=== PATIENT | female | born 1990 | race Caucasian/White ===

== ENCOUNTER 2024-01-04 13:25 | Day surgery (SDC) | payer BC, SELFPAY ==
[2024-01-04] VITALS (10 sets, daily range): BP systolic 132–170; BP diastolic 64–98
--- NOTE | 2024-01-04 09:37 | ED.GENMED ---
History of Present Illness
General
Chief Complaint: Abdominal Pain
Source: patient
Time Seen by Provider: 01/04/24 09:28
Travel History
Have you had any contact with someone who has COVID-19?: No
Do you have any symptoms of coronavirus? Fever > 100 degrees, chills, cough, shortness of breath, sore throat, loss of taste or smell, muscle aches, or headache?: No
History of Present Illness
History of Present Illness:
33-year-old female with no significant past medical history presenting to the emergency department for evaluation after being awoken at 12:30 AM with sudden onset right upper quadrant abdominal pain described to be sharp, radiating towards the
scapula, constant and unrelieved with Tylenol, associated with persistent nausea and 1 episode of nonbloody nonbilious emesis. Patient states that she had a similar episode a couple of months ago the pain then was not as severe and resolved on its
own after around an hour or so. Patient states she had hotdogs, baked beans and corn for dinner last night. No known sick contacts or recent antibiotics. No other concerns at this time.
Past History
Past History
ED Past Medical History: None
ED Past Surgical History:
Social History
Tobacco: Non-smoker
Alcohol: Occasional
Drug: None
Personal:
Living: with family
Review of Systems
Review of Systems
All Other Systems: ROS reviewed and negative except as documented in HPI and ROS
Phy Exam
Physical Exam
Physical Exam:
GENERAL: Alert , appears very uncomfortable
EYE: clear conjunctiva b/l
HEAD: NCAT
ENT: o/p clr, mmm.
CARDIAC: Regular rate and rhythm .
LUNGS: Clear breath sounds bilaterally, no acute respiratory distress, no wheezes/rales/rhonchi
ABDOMEN: Soft, moderate to severe right upper quadrant tenderness, no r/g, no cvat, positive Salazar sign, no tenderness at McBurney's point
NEUROLOGICAL: Alert and oriented
SKIN: Warm and dry, skin intact.
MUSCULOSKELETAL: well perfused.
PSYCH: Normal and appropriate interaction.
Scores
Heart Failure Risk
Heart Failure Risk Score: Not Applicable
Heart Score for Chest Pain Patients
STEMI patient?: Not applicable
Withdrawal Assessment of Alcohol
Withdrawal Assessment Completed?: Not applicable
Course
Orders/Labs/Results
Orders:
Orders
01/04/24 09:30
Urinalysis Reflex To Culture Urgent
Date Specimen was Collected: 01/04/24
Time Specimen was Collected: 09:31
Test Result ONCE
01/04/24 09:36
Ketorolac [Toradol] 30 mg IV NOW STA
Ondansetron Injectable [Zofran] 4 mg IV NOW STA
US Abdomen Complete/Upper Urgent
Comment:
Reason For Exam: RUQ pain, vomiting
01/04/24 10:48
Complete Blood Count/With Diff Urgent
Comprehensive Metabolic Panel Urgent
HCG, Serum Qualitative Screen Urgent
Lipase Urgent
01/04/24 11:02
HYDROmorphone [Dilaudid] 0.5 mg IV NOW STA
Abnormal Lab Results
01/04/24
10:48
MCHC 32.7 L g/dL
(33.0-37.0)
MPV 10.7 H fL
(7.4-10.4)
Absolute Neuts (auto) 7.5 H 10^3/uL
(1.4-6.5)
Absolute Lymphs (auto) 1.1 L 10^3/uL
(1.2-3.4)
Neutrophils % 82.7 H %
(42.2-75.2)
Lymphocytes % 12.3 L %
(20.5-51.1)
Creatinine 0.5 L mg/dL
(0.6-1.0)
Glucose 108 H mg/dl
(70-99)
Calcium 10.6 H mg/dl
(8.4-10.2)
01/04/24 10:48
01/04/24 10:48
Vital Signs
Initial and Last Documented VS:
Initial Vital Signs
Temp Pulse Resp BP Pulse Ox
98.2 F 93 20 170/98 100
01/04/24 09:21 01/04/24 09:21 01/04/24 09:21 01/04/24 09:21 01/04/24 09:21
Last Documented Vital Signs
Temp Pulse Resp BP Pulse Ox
98.2 F 93 20 170/98 100
01/04/24 09:21 01/04/24 09:21 01/04/24 09:21 01/04/24 09:21 01/04/24 09:21
MDM/Problems Addressed
Differential Diagnosis Includes:
Cholecystitis, choledocholithiasis, ascending cholangitis, pancreatitis, GERD/gastritis
MDM/Problems Addressed:
33-year-old female present emergency department for evaluation of sudden onset right upper quadrant abdominal pain beginning early this morning accompanied with persistent nausea and 1 episode of vomiting. Patient still with significant pain
despite the Tylenol. She has considerable right upper quadrant abdominal pain on exam. High degree of suspicion for cholecystitis. Labs and ultrasound ordered. Toradol and Zofran for symptomatic relief. Reassessment following.
*Radiology
Radiology exam reviewed: radiology read reviewed
*Pulse Oximetry
Patient hypoxic: no
*Medical Grade Shoemaker Interpretation
Rate: normal
Rhythm: sinus
*Critical Care Note
Total Time (30-74mins, 75-104mins- exclusive of procedures): Not Applicable
Comment
Comment:
11:05 AM: Patient on reevaluation noting minimal improvement with Toradol. Half milligram of Dilaudid was ordered. I reviewed patient's ultrasound and it does appear to be stones and sludge. Labs unremarkable. Awaiting official radiology report
and will discuss case with surgery.
11:40 AM: Patient noting much improved symptoms with Dilaudid. Still awaiting official ultrasound read.
Patient Management
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
Escalation/DeEscalation of care consider admission/obs:
Patient seen in consultation with general surgery. Decision was ultimately made to take patient to the OR for cholecystectomy. Patient remains with pain under control at present time.
ED Attending Note
-
Portions of this chart may have been created with voice recognition software.� Occasional wrong word or��sound alike� substitutions may have occurred due to the inherent limitations of voice recognition software.
Discharge Plan
Departure
Patient Disposition: OR
Date of Disposition: 01/04/24
Time of Disposition: 12:45
Presentation/result/management discussed w/ accepting MD/DO: Laurel
Discharge Problem:
Acute cholecystitis
Referrals:
Chay Red MD [Family Provider] -
Interventions
Interventions:
*Risk Screen - Suicide Last Done: 01/04/24 09:21
*General Assessment Last Done: 01/04/24 09:21
*Neglect/Abuse Screening Last Done: 01/04/24 10:18
*ED COVID-19 Vaccine History Last Done: 01/04/24 10:18
OU-Lcwwju-Mhdqxfxzfw Assessment Last Done: 01/04/24 10:18
Discharge Date and Time
Print Language: PORTUGUESE
[2024-01-04] MEDS: TORADOL 30 MG IV (10:49)
[2024-01-04] MEDS: ZOFRAN 4 MG IV (10:50)
[2024-01-04 10:56] LABS: % Basophils 0.4 % (0-2); % Immature Granulocytes 0.2 % (0-0.5); % Lymphocytes 12.3 % (20.5-51.1); % Monocytes 4.4 % (1.7-9.3); % Neutrophils 82.7 % (42.2-75.2); Absolute Lymphocytes 1.1 10^3/uL (1.2-3.4); Absolute Monocytes 0.4 10^3/uL (0.1-0.6); Absolute Neutrophils 7.5 10^3/uL (1.4-6.5); Hematocrit 41.3 % (37.0-47.0); Hemoglobin 13.5 g/dL (12.0-16.0); Mean Corp Hgb Conc. 32.7 g/dL (33.0-37.0); Mean Corpuscular Hgb 28.6 pg (27.0-31.0); Mean Corpuscular Volume 87.5 fL (81.0-99.0); Mean Platelet Volume 10.7 fL (7.4-10.4); Nucleated Red Blood Cells % 0 %; Platelet Count 263 10^3/uL (130-400); Red Blood Cell Count 4.72 10^6/uL (4.20-5.40); Red Cell Dist. Width 12.8 % (11.5-14.5); White Blood Cell Count 9.1 10^3/uL (4.8-10.8)
[2024-01-04] MEDS: DILAUDID 0.5 MG IV (11:06)
[2024-01-04 11:09] LABS: HCG, Serum Qualitative Screen Negative
[2024-01-04 11:15] LABS: ALT (SGPT) 28 U/L (0-35); Albumin 4.4 g/dl (3.5-5.0); Alkaline Phosphatase 74 U/L (38-126); Blood Urea Nitrogen 11 mg/dl (7-17); Calcium 10.6 mg/dl (8.4-10.2); Carbon Dioxide 22 mmol/L (22-30); Chloride 106 mmol/L (98-107); Glucose 108 mg/dl (70-99); Lipase 66 U/L (23-300); Potassium 4.3 mmol/L (3.5-5.1); Sodium 137 mmol/L (135-145); Total Bilirubin 0.5 mg/dl (0.2-1.3); Total Protein 7.5 g/dl (6.3-8.2); eGFR > 60.00
[2024-01-04 11:39] LABS: AST (SGOT) 27 U/L (14-36)
--- NOTE | 2024-01-04 12:54 | CON.GS ---
Medical History
-
Chief Complaint: RUQ abdominal pain
History of Present Illness:
Patient is a 33 yo F with a PMH of obesity, MIKE, and s/p who presents to the ER with 24 hours of RUQ abdominal pain. Ms. Porras states that her pain began acutely yesterday evening awakening her from sleep. She describes persistent RUQ
abdominal discomfort which has mildly improved with pain medications in the ED. Her symptoms have not completely resolved. Associated subjective chills and nausea. She denies any jaundice, pale stools, or tea colored urine. She had 1 prior
episode several months ago following hot dogs. She denies any intermittent episodes in between then and now. No strong family history of cholecystectomy.
Past Medical History
Past Medical History: Other (Obesity, MIKE)
Past Surgical History:
Social History
Tobacco: Non-Smoker
Alcohol: None
Drug: None
Family History
Family History: Reviewed & Not Pertinent
Allergies / Home Medications
Allergy/AdvReac Type Severity Reaction Status Date / Time
No Known Allergies Allergy Verified 01/04/24 09:24
Review of Systems
-
A 10 point review of systems was completed, and was negative except as per HPI.
Physical Exam
Vital Signs
Temp Pulse Resp BP Pulse Ox
98.2 F 93 20 170/98 100
01/04/24 09:21 01/04/24 09:21 01/04/24 09:21 01/04/24 09:21 01/04/24 09:21
Lab Results
01/04/24 10:48
01/04/24 10:48
WBC 9.1 10^3/uL (4.8-10.8) 01/04/24 10:48
Hgb 13.5 g/dL (12.0-16.0) 01/04/24 10:48
Hct 41.3 % (37.0-47.0) 01/04/24 10:48
Plt Count 263 10^3/uL (130-400) 01/04/24 10:48
Abs Immat Gran (auto) 0.0 10^3/uL (0-0.05) 01/04/24 10:48
Neutrophils % 82.7 % (42.2-75.2) H 01/04/24 10:48
Physical Exam
General: Well Developed, Well Nourished and No Apparent Distress
HEENT: Normocephalic and Anicteric
Respiratory: Non Labored Respirations
Cardiac: Regular Rhythm
GI: Soft, Non Distended, Tender (RUQ, positive Salazar's sign), Obese and Other (Non-peritoneal)
Musculoskeletal: No Edema
Skin: Warm and Dry
Neuro: Nonfocal/Grossly Intact
Data Reviewed
-
Ultrasound: Image Personally Visualized and interpreted and Report Reviewed by me
Labs: Labs Reviewed by me
Assessment / Plan
-
Patient is a 33 yo F p/acute cholecystitis versus severe biliary colic
The natural history and pathophysiology of biliary and stone disease was discussed. Anatomy was reviewed. Workup thus far including ultrasound and labs were reviewed. Given her persistent pain would recommend cholecystectomy. Option for trial of
outpatient management was discussed, however, discussed potential failure and persistent of symptoms. Patient would like to proceed with surgery.
Plan for laparoscopic cholecystectomy with possible cholangiogram. The procedure itself, as well as the risks, benefits, and alternatives was discussed. Specifically, we discussed the risks of bleeding, infection, injury to surrounding structures
(bowel, bile ducts), CBD injury, need for open procedure. Typical postprocedural coverage was discussed. All questions answered. Consent signed.
-- Laparoscopic cholecystectomy with possible cholangiogram
-- NPO, IVF
-- Abx: Zosyn
-- Pain control: Tylenol and IV Dilaudid
--- NOTE | 2024-01-04 12:59 | W.SUR.PREOP ---
Pre-Operative Surgical Note
-
I have examined this patient prior to the performance of the scheduled procedure.
The patient's condition is unchanged from the time of the current History and
Physical and the patient is able to undergo the scheduled procedure.
[2024-01-04 13:19] LABS: Urine Albumin Trace (Neg - Trace); Urine Bilirubin Negative (Negative); Urine Character Clear (Clear); Urine Color Yellow; Urine Glucose Negative (Negative); Urine Ketone Trace (Negative); Urine Leukocyte Negative (Negative); Urine Nitrite Negative (Negative); Urine Occult Blood Negative (Negative); Urine Urobilinogen Negative (Neg - 1+)
--- NOTE | 2024-01-04 15:08 | W.IMMPOSTOP ---
Addendum entered and electronically signed by Brian Barragan MD 01/05/24 07:21:
[facility]#[id number]
Original Note:
Surgical Immed Post Op Note
-
Primary Surgeon: Laurel
Assisting Surgeon: None
Pre-op Diagnosis: Acute cholecystitis
Post-op Diagnosis: Acute cholecystitis
Procedure Performed: Laparoscopic cholecystectomy with IOC
Anesthesia Type: General
Specimen / Cultures:
1. Gallbladder
Estimated Blood Loss: 23 cc
Complications: None
Operative Findings:
1. Acutely inflamed and distended gallbladder
2. Critical view of safety obtained
3. IOC with anatomy confirmed and no evidence of filling defects
[2024-01-04] MEDS: DILAUDID 0.25 MG IV (15:39)
== END 2024-01-04 17:00 | disposition home or self-care (01) ==
LOC: PACU 13:25
PROVIDERS: Physician Assistant Medical; ATTENDING PHYSICIAN Surgery; EMERGENCY PHYSICIAN Emergency Medicine; FAMILY PHYSICIAN Internal Medicine
DX: K80.00 Calculus of gallbladder with acute cholecystitis without obstruction (principal)
CPT/HCPCS: 47563; 88304; 74300; 76000; 76700; 80053; 81003; 83690; 84703; 85025; 96374; 96375; 99285; A4300

== ENCOUNTER 2024-01-19 17:37 | Observation (INO) | payer BC, SELFPAY ==
[2024-01-19 09:21] VITALS: BP 162/110
[2024-01-19 09:57] VITALS: BMI 38.8
[2024-01-19 10:06] LABS: % Basophils 0.4 % (0-2); % Eosinophils 0.2 % (0-6); % Immature Granulocytes 0.3 % (0-0.5); % Lymphocytes 8.6 % (20.5-51.1); % Monocytes 6.1 % (1.7-9.3); % Neutrophils 84.4 % (42.2-75.2); Absolute Lymphocytes 0.9 10^3/uL (1.2-3.4); Absolute Monocytes 0.6 10^3/uL (0.1-0.6); Absolute Neutrophils 8.7 10^3/uL (1.4-6.5); Hematocrit 39.6 % (37.0-47.0); Hemoglobin 12.7 g/dL (12.0-16.0); Mean Corp Hgb Conc. 32.1 g/dL (33.0-37.0); Mean Corpuscular Hgb 28.2 pg (27.0-31.0); Mean Corpuscular Volume 87.8 fL (81.0-99.0); Mean Platelet Volume 10.9 fL (7.4-10.4); Nucleated Red Blood Cells % 0 %; Platelet Count 271 10^3/uL (130-400); Red Blood Cell Count 4.51 10^6/uL (4.20-5.40); Red Cell Dist. Width 12.6 % (11.5-14.5); White Blood Cell Count 10.3 10^3/uL (4.8-10.8)
[2024-01-19 10:19] LABS: HCG, Serum Qualitative Screen Negative
[2024-01-19 10:21] LABS: ALT (SGPT) 102 U/L (0-35); AST (SGOT) 161 U/L (14-36); Alkaline Phosphatase 85 U/L (38-126); Blood Urea Nitrogen 9 mg/dl (7-17); Calcium 10.5 mg/dl (8.4-10.2); Carbon Dioxide 24 mmol/L (22-30); Chloride 107 mmol/L (98-107); Estimated Creatinine Clearance > 125 ml/min; Glucose 110 mg/dl (70-99); Lipase 94 U/L (23-300); Potassium 4.2 mmol/L (3.5-5.1); Sodium 137 mmol/L (135-145); Total Bilirubin 1.1 mg/dl (0.2-1.3); Total Protein 6.7 g/dl (6.3-8.2); eGFR > 60.00
[2024-01-19 11:57] VITALS: BP 153/103
[2024-01-19 12:06] LABS: Urine Albumin Negative (Neg - Trace); Urine Bilirubin Negative (Negative); Urine Character Clear (Clear); Urine Color Yellow; Urine Glucose Negative (Negative); Urine Ketone Negative (Negative); Urine Leukocyte Negative (Negative); Urine Nitrite Negative (Negative); Urine Occult Blood Negative (Negative); Urine Urobilinogen Negative (Neg - 1+)
[2024-01-19] MEDS: MORPHINE SULFATE 4 MG IV (14:33)
--- NOTE | 2024-01-19 15:13 | ED.GENMED ---
History of Present Illness
<Christopher Perry, DO - Last Filed: 01/19/24 15:18>
General
Chief Complaint: Abdominal Symptoms
Source: patient
Exam Limitations: none
Time Seen by Provider: 01/19/24 09:42
Nursing documentation reviewed up to this point in time: agreed with
History of Present Illness
History of Present Illness:
33-year-old female with right-sided abdominal pain. Began Wednesday night. Worse after eating. She had her cholecystectomy on 01/04/[address] Barragan. No fevers.
Past History
<Christopher Perry, DO - Last Filed: 01/19/24 15:18>
Past History
ED Past Medical History: None
ED Past Surgical History: Cholecystectomy and
Social History
Tobacco: Non-smoker
Alcohol: Occasional
Drug: None
Personal:
Living: with family
Review of Systems
<Christopher Perry, DO - Last Filed: 01/19/24 15:18>
Review of Systems
Allergies reviewed?: Yes
All Other Systems: Not applicable
Constitutional: Reports no symptoms
EENT: Reports no symptoms
Respiratory: Reports no symptoms
Cardiac: Reports no symptoms
ABD/GI: Reports abdominal pain and vomiting
: Reports no symptoms
Musculoskeletal: Reports no symptoms
Skin: Reports no symptoms
Neurological: Reports no symptoms
Endocrine: Reports no symptoms
Hematologic/Lymphatic: Reports no symptoms
Psychiatric: Reports no symptoms
Phy Exam
<Christopher Perry, DO - Last Filed: 01/19/24 15:18>
Physical Exam
Physical Exam:
Physical Exam
General: no apparent distress, not acutely ill
Neck: supple. no meningeal signs. normal posterior pharynx
Heart: s1/s2 regular rate and rhythm, no murmur. equal radial
pulses.
HEENT: Pupils equal round reactive to light, EOMI
Lungs: no acute respiratory distress. clear bilaterally
Abdomen: normal bowel sounds. RUQ tenderness. no CVAT
Neuro: alert and oriented. no focal neurological deficits
Skin: no rash
Psychiatric: well kept. interactive and cooperative
Extremities: no edema. no calf tenderness. negative homans. good distal pulses
Course
<Christopher Perry, DO - Last Filed: 01/19/24 15:18>
Orders/Labs/Results
Orders:
Orders
01/19/24 09:44
IV Insert/Care/Rem.- Treatment PRN
Test Result ONCE
01/19/24 09:58
Complete Blood Count/With Diff Urgent
Comprehensive Metabolic Panel Urgent
HCG, Serum Qualitative Screen Urgent
Lipase Urgent
01/19/24 10:36
CT Abd/pelvis W Iv Cont Urgent
Comment:
Reason For Exam: RUQ pain radiating to back recent lap citlali
01/19/24 11:58
Urinalysis Reflex To Culture Urgent
Date Specimen was Collected: 01/19/24
Time Specimen was Collected: 11:51
01/19/24 13:10
Mrcp Without MR [MR Mrcp Without] Routine
Comment:
Reason For Exam: choledocholithiasis
Recent pill cam endoscopy?: No
01/19/24 14:31
Morphine Sulfate 4 mg IV NOW STA
Abnormal Lab Results
01/19/24
09:58
MCHC 32.1 L g/dL
(33.0-37.0)
MPV 10.9 H fL
(7.4-10.4)
Absolute Neuts (auto) 8.7 H 10^3/uL
(1.4-6.5)
Absolute Lymphs (auto) 0.9 L 10^3/uL
(1.2-3.4)
Neutrophils % 84.4 H %
(42.2-75.2)
Lymphocytes % 8.6 L %
(20.5-51.1)
Glucose 110 H mg/dl
(70-99)
Calcium 10.5 H mg/dl
(8.4-10.2)
AST 161 H U/L
(14-36)
ALT 102 H U/L
(0-35)
01/19/24 09:58
01/19/24 09:58
Vital Signs
Initial and Last Documented VS:
Initial Vital Signs
Temp Pulse Resp BP Pulse Ox
98.2 F 85 16 162/110 98
01/19/24 09:21 01/19/24 09:21 01/19/24 09:21 01/19/24 09:21 01/19/24 09:21
Last Documented Vital Signs
Temp Pulse Resp BP Pulse Ox
98.2 F 83 16 153/103 100
01/19/24 09:21 01/19/24 11:57 01/19/24 11:57 01/19/24 11:57 01/19/24 11:57
<Tk Mosquera, - Last Filed: 01/19/24 16:25>
Orders/Labs/Results
Orders:
Orders
01/19/24 09:44
IV Insert/Care/Rem.- Treatment PRN
Test Result ONCE
01/19/24 09:58
Complete Blood Count/With Diff Urgent
Comprehensive Metabolic Panel Urgent
HCG, Serum Qualitative Screen Urgent
Lipase Urgent
01/19/24 10:36
CT Abd/pelvis W Iv Cont Urgent
Comment:
Reason For Exam: RUQ pain radiating to back recent lap citlali
01/19/24 11:58
Urinalysis Reflex To Culture Urgent
Date Specimen was Collected: 01/19/24
Time Specimen was Collected: 11:51
01/19/24 13:10
Mrcp Without MR [MR Mrcp Without] Routine
Comment:
Reason For Exam: choledocholithiasis
Recent pill cam endoscopy?: No
01/19/24 14:31
Morphine Sulfate 4 mg IV NOW STA
Abnormal Lab Results
01/19/24
09:58
MCHC 32.1 L g/dL
(33.0-37.0)
MPV 10.9 H fL
(7.4-10.4)
Absolute Neuts (auto) 8.7 H 10^3/uL
(1.4-6.5)
Absolute Lymphs (auto) 0.9 L 10^3/uL
(1.2-3.4)
Neutrophils % 84.4 H %
(42.2-75.2)
Lymphocytes % 8.6 L %
(20.5-51.1)
Glucose 110 H mg/dl
(70-99)
Calcium 10.5 H mg/dl
(8.4-10.2)
AST 161 H U/L
(14-36)
ALT 102 H U/L
(0-35)
01/19/24 09:58
01/19/24 09:58
Vital Signs
Initial and Last Documented VS:
Initial Vital Signs
Temp Pulse Resp BP Pulse Ox
98.2 F 85 16 162/110 98
01/19/24 09:21 01/19/24 09:21 01/19/24 09:21 01/19/24 09:21 01/19/24 09:21
Last Documented Vital Signs
Temp Pulse Resp BP Pulse Ox
98.2 F 83 16 153/103 100
01/19/24 09:21 01/19/24 11:57 01/19/24 11:57 01/19/24 11:57 01/19/24 11:57
<Christopher Perry, DO - Last Filed: 01/19/24 15:18>
MDM/Problems Addressed
Differential Diagnosis Includes:
Choledocholithiasis, gallbladder bed abscess
MDM/Problems Addressed:
33-year-old female with right upper quadrant abdominal pain, concern for choledocholithiasis. Seen by Dr. Campbell. MRCP pending.
<Christopher Perry, DO - Last Filed: 01/19/24 15:18>
*Radiology
Radiology exam reviewed: radiology read reviewed (CT abdomen pelvis no acute findings)
*Pulse Oximetry
Patient hypoxic: no
*EKG
Interpreted by ED Provider?: NA
*Organizational Development Consultant Interpretation
Rate: Organizational Development Consultant- N/A
*Critical Care Note
Total Time (30-74mins, 75-104mins- exclusive of procedures): Not Applicable
Data Reviewed
Review of Other/Old Records Reveals: Operative Reports (Cholecystectomy on 01/04/2024)
<Tk Mosquera, DO - Last Filed: 01/19/24 16:25>
Update Note
Update Note:
Abnormal MRCP. Surgery aware. They will admit
ED Attending Note
<Christopher Perry, DO - Last Filed: 01/19/24 15:18>
-
Portions of this chart may have been created with voice recognition software.� Occasional wrong word or��sound alike� substitutions may have occurred due to the inherent limitations of voice recognition software.
Discharge Plan
Departure
Patient Disposition: Admit
Date of Disposition: 01/19/24
Time of Disposition: 16:25
Admit to: Med/Surg
Presentation/result/management discussed w/ accepting MD/DO: General surgery
Discharge Problem:
Abdominal pain, Choledocholithiasis
Prescriptions:
No Action
acetaminophen [acetaminophen] 325 mg tablet
650 mg PO Q4HPRN PRN (Reason: mild pain) Qty: 1 0RF
ibuprofen 200 mg tablet
400 - 600 mg PO Q6HPRN PRN (Reason: moderate pain) Qty: 1 0RF
oxycodone 5 mg tablet
5 mg PO Q4HPRN PRN (Reason: breakthrough/severe pain) Qty: 10 0RF
Referrals:
Chay Red MD [Family Provider] -
Interventions
Interventions:
*Risk Screen - Suicide Last Done: 01/19/24 14:27
*General Assessment Last Done: 01/19/24 10:00
*Neglect/Abuse Screening Last Done: 01/19/24 14:27
*ED COVID-19 Vaccine History Last Done: 01/19/24 09:21
MC-Ocqirk-Nbjpxxgpzs Assessment Last Done: 01/19/24 09:57
Discharge Date and Time
Print Language: SAMI
--- NOTE | 2024-01-19 15:36 | CON.GS ---
Consultation
-
Requesting Provider: Vicky
Performing Provider: Shannan
Reason for Consultation: Abd pain
Medical History
-
Chief Complaint: Abd pain
History of Present Illness:
33F about 2 weeks s/p lap citlali with cholangiogram p/w intermittent abd pain, localized to RUQ and radiating to her back, occurring about 30 mins after eating. Has happened on a daily basis for the last 3 days. She denies f/c/n/v. Pain resolves on
its own but recurs with eating.
Past Medical History
Past Medical History: Reviewed & Noncontributory
Past Surgical History: Cholecystectomy and
Social History
Tobacco: Non-Smoker
Alcohol: Occasional
Drug: None
Personal:
Living: With Family
Employment: Employed
Family History
Family History: Reviewed & Noncontributory
Allergies / Home Medications
Allergy/AdvReac Type Severity Reaction Status Date / Time
No Known Allergies Allergy Verified 01/19/24 09:24
�Medication �Instructions �Recorded �Confirmed �Type
acetaminophen 325 mg tablet 650 mg (2 x 325 mg) PO Q4HPRN PRN 01/04/24 Rx
mild pain #1 tab
ibuprofen 200 mg tablet 400 - 600 mg (2 - 3 x 200 mg) PO 01/04/24 Rx
Q6HPRN PRN moderate pain #1 tab
oxycodone 5 mg tablet 5 mg PO Q4HPRN PRN 01/04/24 Rx
breakthrough/severe pain #10 tabs
Review of Systems
-
A 10 point review of systems was completed, and was negative except as per HPI.
Physical Exam
Vital Signs
Temp Pulse Resp BP Pulse Ox
98.2 F 83 16 153/103 100
01/19/24 09:21 01/19/24 11:57 01/19/24 11:57 01/19/24 11:57 01/19/24 11:57
01/18/24 01/19/24 01/20/24
06:59 06:59 06:59
Actual Weight 109 kg
Body Mass Index (BMI) 38.8
Lab Results
01/19/24 09:58
01/19/24 09:58
WBC 10.3 10^3/uL (4.8-10.8) 01/19/24 09:58
Hgb 12.7 g/dL (12.0-16.0) 01/19/24:58
Hct 39.6 % (37.0-47.0) 01/19/24:58
Plt Count 271 10^3/uL (130-400) 01/19/24:58
Abs Immat Gran (auto) 0.0 10^3/uL (0-0.05) 01/19/24:58
Neutrophils % 84.4 % (42.2-75.2) H 01/19/24 09:58
Physical Exam
General: Well Developed, Well Nourished and No Apparent Distress
HEENT: Normocephalic and Anicteric
GI: Soft, Non Tender and Non Distended
Skin: Warm and Dry
Neuro: AO x 3
Psych: Calm
Data Reviewed
-
CT Scan: Image Personally Visualized and interpreted, Report Reviewed by me, Discussed with Physician and Discussed with Patient
Labs: Labs Reviewed by me and Discussed with Physician
Old Records: Reviewed
Assessment / Plan
-
33F with recurrent RUQ pain 2 weeks s/p CCY with c-gram
AFVSS, presently pain free but concerned about eating
No leukocytosis, Bili WNL though higher than preop, AST/ALT mildly elevated, ALP WNL
CT without fluid collections, CBD appears prominent, measures about 9mm, this could represent post-op changes or possibl7 a retained ductal stone
Considering the timins and nature ofher pain, I suspect a retained CBD stone
She may have already passed the stone or it may not be radio-opaque and would not show up on CT
Plan for MRCP to evaluate for choledocholithiasis
If no stone is found, suspect she has passed it, would PO challenge and DC if tolerates
If a stone is found, would admit and consult GI for ERCP
[2024-01-19 17:53] VITALS: BP 139/88
[2024-01-19] MEDS: D5/0.45%NSS with KCL 20 MEQ 1000 IV (18:11)
[2024-01-19] MEDS: ZOFRAN 4 MG IV (18:46)
[2024-01-19] MEDS: DILAUDID 0.5 MG IV ×2 (18:46→21:51)
[2024-01-19 19:57] VITALS: BP 141/96; BMI 38.0
--- NOTE | 2024-01-19 20:00 | PTCARENOTE ---
Received patient from ED via stretcher. Pt AAOX3. Pox: 97% RA. IVFs infusing without difficulty. Pt denies abdominal pain at this time. Call downs within reach. Plan of care ongoing.
[2024-01-19 23:46] VITALS: BP 139/73
[2024-01-20] VITALS (9 sets, daily range): BP systolic 129–155; BP diastolic 68–88
[2024-01-20] MEDS: D5/0.45%NSS with KCL 20 MEQ 1000 IV ×2 (01:30→08:57)
--- NOTE | 2024-01-20 07:04 | CON.GI ---
Consultation
-
Date/Time Consultation Performed: 01/20/24
Performing Provider: Niraj Hale MD
Reason for Consultation: CBD stone
Medical History
Chief Complaint / HPI
Chief Complaint: abdominal pain
History of Present Illness:
The patient is a 33-year-old female with past medical history as noted with abdominal pain. She recently had cholecystectomy, and was doing well postoperatively up until this Wednesday when she started to have recurrent biliary colic. This was more
severe yesterday which prompted her to come the emergency room she was found to have mildly elevated LFTs. CT scan mostly unremarkable though MRI did show CBD stone. She denies any fevers or chills, jaundice or dark urine. She is feeling okay
this morning. She denies any other significant medical issues.
Past Medical History
Past Medical History: None
Past Surgical History: Cholecystectomy and
Social History
Tobacco: Non-Smoker
Alcohol: Occasional
Family History
Family History: Reviewed & Not Pertinent
Allergies / Home Medications
Allergy/AdvReac Type Severity Reaction Status Date / Time
No Known Allergies Allergy Verified 01/19/24 09:24
�Medication �Instructions �Recorded
acetaminophen 500 mg tablet 1,000 mg PO DAILYPRN PRN headache 01/19/24
(Tylenol Extra Strength)
Review of Systems
-
All other systems: A 12 pt ROS was Negative except as stated above in HPI
Vital Signs
Temp Pulse Resp BP Pulse Ox
98.6 F 80 18 139/73 95
01/19/24 23:46 01/19/24 23:46 01/19/24 23:46 01/19/24 23:46 01/19/24 23:46
Physical Exam
Exam
General: NAD
HEENT: MMM, anicteric, no lymphadenopathy
Heart: Regular, no murmurs
Lungs: CTA bilaterally
Abdomen: normal bowel sounds, soft, no tenderness, no rebound or guarding, no masses, bruits or ascites
Extremeties: no edema
Skin: no rashes
Results
WBC 10.3 10^3/uL (4.8-10.8) 01/19/24 09:58
Hgb 12.7 g/dL (12.0-16.0) 01/19/24 09:58
Hct 39.6 % (37.0-47.0) 01/19/24 09:58
MCV 87.8 fL (81.0-99.0) 01/19/24 09:58
Plt Count 271 10^3/uL (130-400) 01/19/24 09:58
Absolute Neuts (auto) 8.7 10^3/uL (1.4-6.5) H 01/19/24 09:58
Sodium 137 mmol/L (135-145) 01/19/24 09:58
Potassium 4.2 mmol/L (3.5-5.1) 01/19/24 09:58
Chloride 107 mmol/L (98-107) 01/19/24 09:58
Carbon Dioxide 24 mmol/L (22-30) 01/19/24 09:58
BUN 9 mg/dl (7-17) 01/19/24 09:58
Creatinine 0.7 mg/dL (0.6-1.0) 01/19/24 09:58
Calcium 10.5 mg/dl (8.4-10.2) H 01/19/24 09:58
Total Bilirubin 1.1 mg/dl (0.2-1.3) 01/19/24 09:58
AST 161 U/L (14-36) H 01/19/24 09:58
ALT 102 U/L (0-35) H 01/19/24 09:58
Alkaline Phosphatase 85 U/L (38-126) 01/19/24 09:58
Lipase 94 U/L (23-300) 01/19/24 09:58
Diagnostic Image Results:
MRI:
IMPRESSION:
Choledocholithiasis. Mild biliary ductal dilatation.
Prior GI Procedures:
EGD:
Colonoscopy:
Assessment / Plan
-
1. CBD stone: Postcholecystectomy, without signs of cholangitis. At this point we will plan ERCP today, discussed risks and benefits including pancreatitis at length.
-
-
Thank you for consultation and allowing me to participate in the patient's care. Please call the immigration consultant GI physician during the after hours with any questions or concerns.
--- NOTE | 2024-01-20 08:35 | W.PN.GS2 ---
Today's Communication / Plan
-
-- ERCP
Assessment / Plan
-
Patient is a 33 yo F s/p laparoscopic cholecystectomy with IOC, p/w choledocholithiasis
Stable. Appreciate GI help, plan for ERCP today.
-- ERCP today
-- Post-procedure diet per GI
-- Pain control: Tylenol, Toradol, IV Morphine PRN
-- DC pending recover from ERCP, tentatively tomorrow
Subjective Data
-
Date of Service: January 20, 2024
Feels improved and asymptomatic without any oral intake. Any attempts at oral intake trigger a RUQ and epigastric discomfort. No current nausea or vomiting. No fevers.
Objective Data
-
Intake and Output
01/19/24 01/20/24 01/21/24
06:59 06:59 06:59
Intake Total 1855 / 1855
Balance 1855 / 1855
Intake:
Oral fluids 480 / 480
IV fluids (Total) 1375 / 1375
Other:
Number of approximated MODERATE 2
amounts of urine
Vital Signs
Temp Pulse Resp BP Pulse Ox
97.8 F 91 20 155/85 98
01/20/24 07:55 01/20/24 07:55 01/20/24 07:55 01/20/24 07:55 01/20/24 07:55
Lab Results
01/19/24 09:58
01/19/24 09:58
Calcium 10.5 mg/dl (8.4-10.2) H 01/19/24 09:58
Total Bilirubin 1.1 mg/dl (0.2-1.3) 01/19/24 09:58
AST 161 U/L (14-36) H 01/19/24 09:58
ALT 102 U/L (0-35) H 01/19/24 09:58
Alkaline Phosphatase 85 U/L (38-126) 01/19/24 09:58
Total Protein 6.7 g/dl (6.3-8.2) 01/19/24 09:58
Albumin 4.0 g/dl (3.5-5.0) 01/19/24 09:58
Physical Exam
-
Gen: NAD
Abd: soft, mild discomfort in epigastrium, ND, non-peritoneal, incisions c/d/i - no erythema, ecchymosis or drainage
== END 2024-01-20 16:22 | disposition home or self-care (01) ==
LOC: 4 EAST ACU 17:37
PROVIDERS: Emergency Medicine; ADMITTING PHYSICIAN Surgery; CONSULT PHYSICIAN Internal Medicine Gastroenterology; EMERGENCY PHYSICIAN Emergency Medicine; FAMILY PHYSICIAN Internal Medicine
DX: K80.50 Calculus of bile duct without cholangitis or cholecystitis without obstruction (principal); R10.9 Unspecified abdominal pain; R16.0 Hepatomegaly, not elsewhere classified; K83.8 Other specified diseases of biliary tract; Z90.49 Acquired absence of other specified parts of digestive tract
CPT/HCPCS: 43264; 74177; 74181; 74330; 76000; 80053; 81003; 83690; 84703; 85025; 96365; 96375; 99285; C1769; G0378; Q9967